=== PATIENT | female | born 1945 | race Hispanic/Latino ===

== ENCOUNTER 2018-12-13 09:58 | Outpatient (CLI) | payer MEDICARE ==
--- NOTE | 2018-12-13 10:32 | XRay Report ---
XRAY RIGHT HAND THREE VIEWS: 12/13/18 09:58:00 CLINICAL: Right hand pain. FINDINGS: Mild osteopenia. No fracture or dislocation. 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 Mild osteoarthritis at the basal joint of the thumb.Calcification of the triangular fibrocartilage of the wrist. Mild to moderate osteoarthritis of the third, fourth and fifth DIP joints and the fifth IP joint. 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
== END 2018-12-13 09:59 | disposition home or self-care (01) ==
LOC: SPVIMAG 09:58
PROVIDERS: ATTEND Internal Medicine
DX: M19.031 Primary osteoarthritis, right wrist (principal)

== ENCOUNTER 2019-08-16 12:51 | Outpatient (CLI) | payer MEDICARE ==
--- NOTE | 2019-08-16 16:38 | Mammography Report ---
DIGITAL SCREENING MAMMOGRAM WITH CAD, 08/16/2019 INDICATION: Routine screening mammography. TECHNIQUE: Digital bilateral 2D mammography was obtained in the craniocaudal and mediolateral obliq ue projections. This examination was interpreted with the benefit of Computer-Aided Detection analysi s. COMPARISON: 03/31/2016 FINDINGS: Breast Density: The breasts are almost entirely fatty. There is no evidence of dominant mass, suspicious calcifications or architectural distortion in eithe r breast. IMPRESSION: No mammographic evidence of malignancy. Follow up recommendation: Routine yearly BI-RADS Category 1: Negative. A "normal" or negative report should not discourage follow up or biopsy of a clinically significant f inding. A written summary of these findings will be mailed to the patient. The patient will be entered into a mammography reporting system which will generate a reminder letter for the patient's next appointmen t at the appropriate interval. The [employer] recommends yearly mammograms starting at age 40 and continuing as l julio as a woman is in good health. Breast MRI is recommended for women with an approximate 20-25% or greater lifetime risk of breast cancer, including women with a strong family history of breast or ova amber cancer or who have been treated for Hodgkin's disease. Signer Name: Matthew Martel MD Signed: 08/16/2019 4:34 PM Workstation Name: [id number]
--- NOTE | 2019-08-17 08:13 | Mammography Report ---
BONE DEXA CLINICAL: Postmenopausal. COMPARISON: 03/24/2013 TECHNIQUE: 2 site bone DEXA performed on an Hologic scanner. FINDINGS: The average BMD of the left forearm is 0.467g/cm squared with a T score of -1.9 and a Z score of +0.5 . The average total BMD of the left hip is 0.930 g/cm squared with a T score of -0.1and a Z score of +1 .5. This compares to 1.182g/cm squared on the last exam and represents a -3.7% change from baseline. The left femoral neck BMD is 0.674g/cm squared with a T score of -1.6 and a Z score of +0.4. Comparisons are not available for the forearm and the left femoral neck. The spine was not imaged on this exam because she has had back surgery with placement of metal since the last exam. IMPRESSION: 1. WHO classification: Osteopenia with increased fracture risk based on both left forearm and left fe moral neck measurements. 2. A moderate decline in left hip BMD compared to the last exam. RECOMMENDATION: Clinical correlation and routine screening. Definitions: BMD equal bone mineral density T score = BMD related to peak bone mass of young adult (Douglas expressed an standard deviation) Z score = age-matched BMD expressed in SD World health organization (WHO) diagnostic criteria Normal T score greater than equal to 1 standard deviation Osteopenia T score between -1 and -2.4 standard deviation Osteoporosis T score -2.5 standard deviation or below. Note: BMD is not the only risk factor for fracture; also consider factors such as the patient's age, risk of falling, previous osteoporotic fracture, family history of osteoporotic fractures, current sm oker and low body weight. Z scores are not calculated if greater than 80 years of age. Signer Name: Matthew Martel MD Signed: 08/17/2019 8:08 AM Workstation Name: [id number]
== END 2019-08-16 12:52 | disposition home or self-care (01) ==
LOC: SPVWC 12:51
PROVIDERS: ATTEND Internal Medicine
DX: Z12.31 Encounter for screening mammogram for malignant neoplasm of breast (principal); Z13.820 Encounter for screening for osteoporosis; Z78.0 Asymptomatic menopausal state
CPT/HCPCS: 77067; 77080

== ENCOUNTER 2019-11-30 11:53 | Outpatient (CLI) | payer MEDICARE ==
--- NOTE | 2019-11-30 14:06 | XRay Report ---
HIPS BILATERAL 2 VIEWS WITH PELVIS INDICATION: BILATERAL HIP PAIN. COMPARISON: None. IMPRESSION: No acute osseous or soft tissue abnormality. No significant DJD. There is mild muscul otendinous spurring/calcifications adjacent to both greater trochanters. Lower lumbar fusion changes are partially imaged. Signer Name: Alfredo Ramsey Jr, MD Signed: 11/30/2019 2:01 PM Workstation Name: [id number]
== END 2019-11-30 11:54 | disposition home or self-care (01) ==
LOC: SPVIMAG 11:53
PROVIDERS: ATTEND Anesthesiology
DX: M25.552 Pain in left hip (principal); M25.551 Pain in right hip
CPT/HCPCS: 73521

== ENCOUNTER 2021-09-03 11:07 | Outpatient (CLI) | payer MEDICARE ==
--- NOTE | 2021-09-03 14:07 | Mammography Report ---
DIGITAL SCREENING MAMMOGRAM WITH CAD, 09/03/2021 CLINICAL INFORMATION / INDICATION: Routine screening mammography. SCREENING MAMMO TECHNIQUE: Digital bilateral 2D mammography was obtained in the craniocaudal and mediolateral obliqu e projections. This examination was interpreted with the benefit of Computer-Aided Detection analysis . COMPARISON: 08/04/2013 through 08/16/2019. FINDINGS: Breast Density: There are scattered areas of fibroglandular density. No dominant mass, suspicious calcifications, or architectural distortion in either breast. There are small benign intramammary lymph nodes bilaterally. IMPRESSION: No mammographic evidence of malignancy. Follow up recommendation: Routine yearly BI-RADS Category 2: Benign. A "normal" or negative report should not discourage follow up or biopsy of a clinically significant f inding. A written summary of these findings will be mailed to the patient. The patient will be entered into a mammography reporting system which will generate a reminder letter for the patient's next appointmen t at the appropriate interval. The [employer] recommends yearly mammograms starting at age 40 and continuing as l julio as a woman is in good health. Breast MRI is recommended for women with an approximate 20-25% or greater lifetime risk of breast cancer, including women with a strong family history of breast or ova amber cancer or who have been treated for Hodgkin's disease. Signer Name: Jeff Siegel MD Signed: 09/03/2021 2:02 PM Workstation Name: [email or web address]
--- NOTE | 2021-09-03 15:42 | Mammography Report ---
DEXA BONE DENSITY SCAN INDICATION: ASYMPTOMATIC MENOPAUSAL STATE. COMPARISON: 08/16/2019 The average BMD of the left forearm is 0.428g/cm squared with a T score of -2.7 and a Z score of -0.1 . This compares to 0.467 g/cm squared on the last exam. The average total BMD of the left hip is 0.886 g/cm squared with a T score of -0.5 and a Z score of 1 .3. This compares to 0.930 g/cm squared on the last exam and represents a -8.2% change from baseline. The left femoral neck BMD is 0.674g/cm squared with a T score of -1.7 and a Z score of +0.3. Comparisons are not available for the forearm and the left femoral neck. The spine was not imaged on this exam because she has had back surgery with placement of metal since the last exam. IMPRESSION: 1. WHO classification: Osteopenia with increased fracture risk based on both left forearm and left fe moral neck measurements. Definitions: BMD equal bone mineral density T score = BMD related to peak bone mass of young adult (Douglas expressed an standard deviation) Z score = age-matched BMD expressed in SD World health organization (WHO) diagnostic criteria Normal T score greater than equal to 1 standard deviation Osteopenia T score between -1 and -2.4 standard deviation Osteoporosis T score -2.5 standard deviation or below. Note: BMD is not the only risk factor for fracture; also consider factors such as the patient's age, risk of falling, previous osteoporotic fracture, family history of osteoporotic fractures, current sm oker and low body weight. Z scores are not calculated if greater than 80 years of age. Signer Name: Jay Butterfield MD Signed: 09/03/2021 3:37 PM Workstation Name: [id number]
== END 2021-09-03 11:08 | disposition home or self-care (01) ==
LOC: SPVWC 11:07
PROVIDERS: ATTEND Internal Medicine
DX: Z12.31 Encounter for screening mammogram for malignant neoplasm of breast (principal); M85.88 Other specified disorders of bone density and structure, other site; Z78.0 Asymptomatic menopausal state
CPT/HCPCS: 77067; 77080